=== PATIENT | female | born 1965 | race American Indian/Alaskan Native ===

== ENCOUNTER 2017-08-15 19:13 | Inpatient (IN) | payer BC ==
[2017-08-15 19:57] LABS: Hemoglobin 11.3 gm/dl (10.1-14.3); Mean Corpuscular HGB Conc 33 % (30-34); Mean Corpuscular Volume 74 fl (79-97); Platelet Count 378 K/mm3 (140-440)
[2017-08-15 20:03] LABS: Mean Corpuscular Hemoglobin 25 pg (28-32)
[2017-08-15 20:21] LABS: Calcium 9.9 mg/dL (8.4-10.2)
[2017-08-15 21:04] LABS: Bacteria,Urine 1+ /HPF (Negative); Bilirubin,Urine NEG (Negative); Blood,Urine NEG (Negative); Color,Urine Yellow (Yellow); Urobilinogen,Urine < 2.0 mg/dL (<2.0)
--- NOTE | 2017-08-16 05:38 | Emergency Department Report ---
Blank Doc - Documentation Documentation: 51 year old female with a past medical history hypertension and CHF presents to hospital after syncopal episode at 2 PM. Patient became nauseated, went to stand to go to the bathroom, then passed out. The next day she remembered his her brother helping her up. Patient had some mild pain to the top of her nasal bridge. She complains of a mild headache now because she hasn't had anything to eat. She denies continued nausea, vomiting, chest pain, shortness of breath , abdominal pain, or fever. Patient complains of 2 loose stools and diarrhea for a couple of days. Patient is visiting from [place] and flew to [facility] 3 days ago. Labs reveal significant renal dysfunction (inc creatinine) with elevated BUN and hyperkalemia. Patient does complain of feeling somewhat fatigued but I would expect more depressed mental status for patient with new-onset renal failure (unless very gradual onset). Patient also does not have signs of fluid overload and was able to produce urine in the ED. EKG reviewed does not show signs of ST elevation or significant peaked T waves. I have ordered a repeat CBC, BMP reverify these abnormalities prior to nephrology consultation INR also ordered CT head ordered since patient passed out and has head trauma She has minimum superior nasal bridge tenderness, no septal hematoma and no other facial tenderness on exam. Nurse instructed to put current meds in computer and perform orthostatics pt to be further evaluated and dispo as per adams ROBERTS.
[2017-08-16 06:01] LABS: Basophils # (Auto) 0.1 K/mm3 (0.0-0.1); Basophils % (Auto) 0.6 % (0.0-1.8); Eosinophils # (Auto) 0.1 K/mm3 (0.0-0.4); Eosinophils % (Auto) 0.6 % (0.0-4.3); Hematocrit 36.1 % (30.3-42.9); Lymphocytes # (Auto) 2.1 K/mm3 (1.2-5.4); Lymphocytes % (Auto) 18.8 % (13.4-35.0); Mean Corpuscular HGB Conc 33 % (30-34); Mean Corpuscular Volume 75 fl (79-97); Monocytes # (Auto) 0.8 K/mm3 (0.0-0.8); Monocytes % (Auto) 7.3 % (0.0-7.3); Platelet Count 376 K/mm3 (140-440); Red Blood Count 4.83 M/mm3 (3.65-5.03); Red Cell Distribution Width 13.8 % (13.2-15.2)
[2017-08-16 06:03] LABS: Mean Corpuscular Hemoglobin 25 pg (28-32)
[2017-08-16 06:12] LABS: INR 1.01 (0.87-1.13)
[2017-08-16 06:23] LABS: Calcium 10.5 mg/dL (8.4-10.2)
[2017-08-16 06:24] LABS: Creatine Kinase MB 2.2 ng/mL (0.0-4.0)
[2017-08-16] MEDS ORDERED: PROVENTIL IH ONE (06:37)
[2017-08-16] MEDS ORDERED: KIONEX PO ONE (06:37)
[2017-08-16] MEDS ORDERED: SODIUM BICARBONATE IV ONE (06:37)
[2017-08-16] MEDS ORDERED: HumuLIN R IV ONE (06:39)
[2017-08-16] MEDS ORDERED: D50W (25GM) Syringe IV ONE (06:39)
--- NOTE | 2017-08-16 06:45 | Emergency Department Report ---
HPI - General Chief Complaint: Syncope Time Seen by Provider: 08/16/17 05:23 - HPI HPI: Room 17 The patient is a 51-year-old female presenting with a chief complaint of syncope. The patient states yesterday afternoon at approximately 14:00 she was in her usual state of health sitting down on a couch when she suddenly felt nauseous. The patient states she stood up to go to the bathroom and then lost consciousness. Patient awakened on the floor with family over her. Patient denied preceding chest pain, headache, palpitations or shortness of breath. Patient denies any change in urinary output. Patient did admit to 2 episodes of diarrhea yesterday. Patient currently asymptomatic Location: [See above] Duration: [See above] Quality: Nausea Severity: Moderate Modifying factors: [see above] Context: [see above] Mode of transportation: [not driving] ED Past Medical Hx - Past Medical History Hx Hypertension: Yes Hx Congestive Heart Failure: Yes - Surgical History Past Surgical History?: No - Family History Family history: no significant - Social History Smoking Status: Former Smoker (none 10 months) Substance Use Type: None - Medications Home Medications: Home Medications Medication Instructions Recorded Confirmed Last Taken Type Aspirin EC 81 mg PO DAILY 08/16/17 08/16/17 Unknown History Bumetanide [Bumex 1 mg tab] 2 mg PO BID 08/16/17 08/16/17 Unknown History Carvedilol [Coreg] 3 tab PO BID 08/16/17 08/16/17 Unknown History Colace CAP 100 mg PO AC 08/16/17 08/16/17 Unknown History Isosorbide Dinitrate [Isordil 30 mg PO TID 08/16/17 08/16/17 Unknown History Titradose] Klor-Con 10 20 meq PO DAILY 08/16/17 08/16/17 Unknown History Lisinopril [Zestril TAB] 30 mg PO DAILY 08/16/17 08/16/17 Unknown History Spironolactone 25 mg PO DAILY 08/16/17 08/16/17 Unknown History hydrALAZINE [Apresoline] 75 mg PO Q8HR 08/16/17 08/16/17 Unknown History ED Review of Systems ROS: Stated complaint: PAST OUT,HEART FAILURE Other details as noted in HPI Constitutional: no symptoms reported Eyes: denies: eye pain ENT: denies: throat pain Respiratory: denies: shortness of breath Cardiovascular: denies: chest pain, palpitations Gastrointestinal: nausea, diarrhea. denies: abdominal pain Genitourinary: denies: dysuria Musculoskeletal: denies: back pain Neurological: denies: headache Physical Exam - Physical Exam Vital Signs: Vital Signs 08/15/17 08/16/17 08/16/17 19:22 04:19 05:33 Temperature 98.6 F 98.9 F Pulse Rate 77 70 Pulse Rate [ 64 Lying] Respiratory 18 14 Rate Blood Pressure 109/70 127/70 Blood Pressure 135/60 [Lying] O2 Sat by Pulse 98 98 Oximetry Physical Exam: GENERAL: The patient is well-developed well-nourished female lying on stretcher not appearing to be in acute distress. [] HEENT: Normocephalic. Atraumatic. Extraocular motions are intact. Patient has moist mucous membranes. NECK: Supple. No meningitic signs are noted. Trachea midline CHEST/LUNGS: Clear to auscultation. There is no respiratory distress noted. HEART/CARDIOVASCULAR: Regular. There is no tachycardia. There is no gallop rub or murmur. ABDOMEN: Abdomen is soft, nontender. Patient has normal bowel sounds. There is no abdominal distention. SKIN: There is no rash. There is no edema. There is no diaphoresis. NEURO: The patient is awake, alert, and oriented. The patient is cooperative. The patient has no focal neurologic deficits. The patient has normal speech. Cranial nerves II through XII grossly intact, no drift MUSCULOSKELETAL: There is no evidence of acute injury. NIHSS= 0 LOC a. Alert= 0 Not alert but arousable to minor stimuli=1 Not alert requires repeated or strong stimuli to move= 2 Responds only reflex motor or unresponsive=3 b. asks month and age answers both correctly= 0 answers one correctly= 1 answers neither correctly= 2 Best Gaze normal= 0 abnormal in one or both but forced deviation or total paresis absent= 1 forced deviation or total gaze paresis= 2 Visual no visual loss= 0 partial hemianopia= 1 complete hemianopia= 2 bilateral hemianopia= 3 Facial Palsy normal= 0 minor paralysis= 1 partial paralysis= 2 complete paralysis= 3 Motor Arm no drift= 0 drift before 10 secs but doesnt hit bed= 1 some effort against gravity= 2 no effort against gravity= 3 no movement= 4 Motor leg no drift= 0 drift before 5 secs but doesnt hit bed= 1 drifts to bed before 5 secs= 2 no effort against gravity= 3 no movement= 4 Limb ataxia absent=0 present in one limb= 1 present in two limbs= 2 Sensory normal= 0 mild sensory loss= 1 severe (unaware of being touched)= 2 Best language mild/some loss of fluency= 1 severe= 2 mute= 3 Dysarthria normal= 0 slurs some words= 1 severe/unintelligible= 2 Extinction and Inattention no abnormality= 0 visual, tactile, auditory or personal inattention= 1 profound (doesnt recognize own hand or orients to only one side= 2 ED Course Vital Signs 08/15/17 08/16/17 08/16/17 19:22 04:19 05:33 Temperature 98.6 F 98.9 F Pulse Rate 77 70 Pulse Rate [ 64 Lying] Respiratory 18 14 Rate Blood Pressure 109/70 127/70 Blood Pressure 135/60 [Lying] O2 Sat by Pulse 98 98 Oximetry ED Medical Decision Making - Lab Data Result diagrams: 08/16/17 05:46 08/16/17 05:46 Laboratory Tests 08/15/17 08/15/17 08/15/17 19:35 19:35 20:31 WBC 13.7 H RBC 4.60 Hgb 11.3 Hct 34.0 MCV 74 L MCH 25 L MCHC 33 RDW 14.0 Plt Count 378 Lymph % (Auto) [place] % (Auto) Eos % (Auto) Baso % (Auto) Lymph # [place] # Eos # Baso # Seg Neutrophils % Seg Neutrophils # PT INR Sodium 136 L Potassium 5.7 H Chloride 98.3 Carbon Dioxide 21 L Anion Gap 22 BUN 118 H Creatinine 6.9 H Estimated GFR 6 BUN/Creatinine Ratio 17 Glucose 121 H Calcium 9.9 Total Creatine Kinase CK-MB (CK-2) CK-MB (CK-2) Rel Index Troponin T Urine Color Yellow Urine Turbidity Clear Urine pH 6.0 Ur Specific [place] 1.011 Urine Protein 30 mg/dl Urine Glucose (UA) Neg Urine Ketones Neg Urine Blood Neg Urine Nitrite Neg Urine Bilirubin Neg Urine Urobilinogen < 2.0 Ur Leukocyte Esterase Lg Urine WBC (Auto) 16.0 H Urine RBC (Auto) 5.0 U Epithel Cells (Auto) 10.0 Urine Bacteria (Auto) 1+ 08/16/17 08/16/17 08/16/17 05:46 05:46 05:46 WBC 11.1 H RBC 4.83 Hgb 12.0 Hct 36.1 MCV 75 L MCH 25 L MCHC 33 RDW 13.8 Plt Count 376 Lymph % (Auto) 18.8 [place] % (Auto) 7.3 Eos % (Auto) 0.6 Baso % (Auto) 0.6 Lymph # 2.1 [place] # 0.8 Eos # 0.1 Baso # 0.1 Seg Neutrophils % 72.7 H Seg Neutrophils # 8.1 H PT 13.8 INR 1.01 Sodium 141 Potassium 5.9 H Chloride 98.3 Carbon Dioxide 25 Anion Gap 24 BUN 115 H Creatinine 6.0 H Estimated GFR 9 BUN/Creatinine Ratio 19 Glucose 102 H Calcium 10.5 H Total Creatine Kinase CK-MB (CK-2) CK-MB (CK-2) Rel Index Troponin T Urine Color Urine Turbidity Urine pH Ur Specific [place] Urine Protein Urine Glucose (UA) Urine Ketones Urine Blood Urine Nitrite Urine Bilirubin Urine Urobilinogen Ur Leukocyte Esterase Urine WBC (Auto) Urine RBC (Auto) U Epithel Cells (Auto) Urine Bacteria (Auto) 08/16/17 05:46 WBC RBC Hgb Hct MCV MCH MCHC RDW Plt Count Lymph % (Auto) [place] % (Auto) Eos % (Auto) Baso % (Auto) Lymph # [place] # Eos # Baso # Seg Neutrophils % Seg Neutrophils # PT INR Sodium Potassium Chloride Carbon Dioxide Anion Gap BUN Creatinine Estimated GFR BUN/Creatinine Ratio Glucose Calcium Total Creatine Kinase 100 CK-MB (CK-2) 2.2 CK-MB (CK-2) Rel Index 2.2 Troponin T < 0.010 Urine Color Urine Turbidity Urine pH Ur Specific [place] Urine Protein Urine Glucose (UA) Urine Ketones Urine Blood Urine Nitrite Urine Bilirubin Urine Urobilinogen Ur Leukocyte Esterase Urine WBC (Auto) Urine RBC (Auto) U Epithel Cells (Auto) Urine Bacteria (Auto) - EKG Data -: EKG Interpreted by Me EKG shows normal: sinus rhythm Rate: normal - EKG Data When compared to previous EKG there are: previous EKG unavailable Interpretation: nonspecific ST-T wave brock (T-wave inversions in leads 3 and aVF. Biphasic T-wave in V6) - Radiology Data Radiology results: report reviewed (CT head), image reviewed (CT head) [facility] [address] [place] [address] Cat Scan Report Signed Patient: RENATE FORRESTER MR#: [id number] : 1965 Acct:[id number] Age/Sex: 51 / F ADM Date: 08/15/17 Loc: ED Attending Dr: Ordering Physician: SOMMER HERNANDEZ MD Date of Service: 08/16/17 Procedure(s): CT head/brain wo con Accession Number(s): [id number] cc: SOMMER HERNANDEZ MD FINAL REPORT EXAM: CT HEAD/BRAIN WO CON HISTORY: syncope TECHNIQUE: Routine axial imaging was obtained of the brain without IV contrast. There are no previous studies available for comparison. FINDINGS: There is diminished attenuation of the periventricular white matter compatible with chronic microvascular disease changes. There is a remote lacunar infarct in the left temporal lobe just medial to the sub insular cortex. There is no evidence of acute stroke or hemorrhage. The ventricular system is appropriate in size and is symmetric. The visualized sinuses are clear. The mastoid air cells are well pneumatized. The calvarium appears intact. IMPRESSION: Diminished attenuation of the periventricular white matter compatible with chronic microvascular changes. No evidence of acute stroke or hemorrhage otherwise. Remote lacunar infarct in the left temporal lobe as described. Transcribed By: RB Dictated By: GALE PAIGE MD Electronically Authenticated By: GALE PAIGE MD Signed Date/Time: 08/16/17702 DD/ 2 - Differential Diagnosis syncope, ICH, dehydration, renal failure Critical care attestation.: If time is entered above; I have spent that time in minutes in the direct care of this critically ill patient, excluding procedure time. ED Disposition Clinical Impression: Syncope, Acute renal failure, Hyperkalemia Disposition: -09 OP ADMIT IP TO THIS HOSP Is pt being admited?: Yes Does the pt Need Aspirin: No Condition: Fair Instructions: Syncope (ED) Referrals: PRIMARY CARE, [Primary Care Provider] - 3-5 Days Time of Disposition: 07:22 (hospitalist notified (Dr Zendejas))
--- NOTE | 2017-08-16 07:07 | Cat Scan Report ---
FINAL REPORT EXAM: CT HEAD/BRAIN WO CON HISTORY: syncope TECHNIQUE: Routine axial imaging was obtained of the brain without IV contrast. There are no previous studies available for comparison. FINDINGS: There is diminished attenuation of the periventricular white matter compatible with chronic microvascular disease changes. There is a remote lacunar infarct in the left temporal lobe just medial to the sub insular cortex. There is no evidence of acute stroke or hemorrhage. The ventricular system is appropriate in size and is symmetric. The visualized sinuses are clear. The mastoid air cells are well pneumatized. The calvarium appears intact. IMPRESSION: Diminished attenuation of the periventricular white matter compatible with chronic microvascular changes. No evidence of acute stroke or hemorrhage otherwise. Remote lacunar infarct in the left temporal lobe as described.
[2017-08-16] MEDS ORDERED: MORPHINE IV PRN (08:25)
[2017-08-16] MEDS ORDERED: ZOFRAN IV PRN (08:25)
[2017-08-16] MEDS ORDERED: SODIUM CHLORIDE FLUSH SYRINGE 10 ML IV PRN (08:25)
[2017-08-16] MEDS ORDERED: TYLENOL PO PRN (08:25)
--- NOTE | 2017-08-16 08:25 | History and Physical Report ---
History of Present Illness Date of examination: 08/16/17 Date of admission: 08/16/17 Chief complaint: passed out History of present illness: Patient is 51 yo with history of hypertension, CHF. She is from [place] just visiting in the [place] area. She presents with an episode of syncope. Patient states she was at home sitting in a chair she gets up to go to bathroom and passed out. She was found on the floor by her brother and brought to emergency department. She denied any chest pain or shortness of breath. After she became conscious she was bleeding from the nose. Patient was evaluated in emergency department, CT head was unremarkable. Labs showed acute kidney injury with creatinine of 6.9, Hyperkalemia with potassium of 5.7. She denies having a history of renal failure. Patient is on Bumex, aldactone, lisinopril, potassium supplements. She states she does labs every month and the last lab was earlier this month. She cannot give the exact results, but states she was never told there was any problem with kidneys.. In ED, she has been given Insulin, Albuterol, kayexalate, and will be admitted for further management. Past History Past Medical History: heart failure, hypertension Past Surgical History: No surgical history Social history: lives with family, full code, other (Quit smoking 10mths ago). denies: smoking, alcohol abuse Family history: hypertension Medications and Allergies Allergies Allergy/AdvReac Type Severity Reaction Status Date / Time No Known Allergies Allergy Verified 08/16/17 06:39 Home Medications Medication Instructions Recorded Confirmed Last Taken Type Aspirin EC 81 mg PO DAILY 08/16/17 08/16/17 Unknown History Bumetanide [Bumex 1 mg tab] 2 mg PO BID 08/16/17 08/16/17 Unknown History Carvedilol [Coreg] 3 tab PO BID 08/16/17 08/16/17 Unknown History Colace CAP 100 mg PO AC 08/16/17 08/16/17 Unknown History Isosorbide Dinitrate [Isordil 30 mg PO TID 08/16/17 08/16/17 Unknown History Titradose] Klor-Con 10 20 meq PO DAILY 08/16/17 08/16/17 Unknown History Lisinopril [Zestril TAB] 30 mg PO DAILY 08/16/17 08/16/17 Unknown History Spironolactone 25 mg PO DAILY 08/16/17 08/16/17 Unknown History hydrALAZINE [Apresoline] 75 mg PO Q8HR 08/16/17 08/16/17 Unknown History Review of Systems All systems: negative (No headache, no chest pain, no fever. All other systems reviewed and are negative) Exam - Physical Exam Narrative exam: Gen : Not in acute distress, Obese,lying in bed HEENT:Normocephalic, atraumatic Neck: supple, No JVD Lungs: Clear to auscultation bilaterally, no crackles. no rhonchi, Heart :S1 and S2 reg, no murmurs, rubs or gallop Abd:soft, non tender, non distended, normal bowel sounds Ext: No edema, no clubbing, no cyanosis Neuro: Awake,alert,oriented x 3, no focal signs Psych: Normal mood - Constitutional Vitals: Temp Pulse Resp BP Pulse Ox 98.9 F 84 18 143/74 97 08/16/17 04:19 08/16/17 07:19 08/16/17 07:19 08/16/17 06:30 08/16/17 06:30 Results - Labs CBC & Chem 7: 08/17/17 05:34 08/17/17 05:34 Labs: Abnormal lab results 08/15/17 08/15/17 08/15/17 Range/Units 19:35 19:35 20:31 WBC 13.7 H (4.5-11.0) K/mm3 MCV 74 L (79-97) fl MCH 25 L (28-32) pg Seg Neutrophils % (40.0-70.0) % Seg Neutrophils # (1.8-7.7) K/mm3 Sodium 136 L (137-145) mmol/L Potassium 5.7 H (3.6-5.0) mmol/L Carbon Dioxide 21 L (22-30) mmol/L BUN 118 H (7-17) mg/dL Creatinine 6.9 H (0.7-1.2) mg/dL Glucose 121 H (65-100) mg/dL Calcium (8.4-10.2) mg/dL Urine WBC (Auto) 16.0 H (0.0-6.0) /HPF 08/16/17 08/16/17 Range/Units 05:46 05:46 WBC 11.1 H (4.5-11.0) K/mm3 MCV 75 L (79-97) fl MCH 25 L (28-32) pg Seg Neutrophils % 72.7 H (40.0-70.0) % Seg Neutrophils # 8.1 H (1.8-7.7) K/mm3 Sodium (137-145) mmol/L Potassium 5.9 H (3.6-5.0) mmol/L Carbon Dioxide (22-30) mmol/L BUN 115 H (7-17) mg/dL Creatinine 6.0 H (0.7-1.2) mg/dL Glucose 102 H (65-100) mg/dL Calcium 10.5 H (8.4-10.2) mg/dL Urine WBC (Auto) (0.0-6.0) /HPF Assessment and Plan Syncope likely due to orthostasis. 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 Potassium 5.6 on presentation. She was on Potassium supplements, Aldactone,Lisinopril. Will hold all for now. Kayexalate given recheck later today Hypertension. Obtain orthostatic vitals. May resume Coreg, Nitrates when BP stable. Chronic CHF, details unclear. She was on Bumex, Aldactone, Lisinopril.Coreg, Nitrates Obtain records from technical solution architect at [place] DVT prophylaxis. will start heparin subcut. Full code status
[2017-08-16] MEDS ORDERED: CALCIUM GLUCONATE 1,000 MG in NACL 0.9% 100 ML IV ONE (09:10)
--- NOTE | 2017-08-16 09:13 | Consultation ---
History of Present Illness - Reason for Consult Consult date: 08/16/17 acute renal failure Requesting physician: MELVIN MASON - History of Present Illness The patient is a 51-year-old female presenting with a chief complaint of syncope. The patient states yesterday afternoon at approximately 14:00 she was in her usual state of health sitting down on a couch when she suddenly felt nauseous. The patient states she stood up to go to the bathroom and then lost consciousness. Patient awakened on the floor with family over her. Patient denied preceding chest pain, headache, palpitations or shortness of breath. Patient denies any change in urinary output. Patient did admit to 2 episodes of diarrhea yesterday. Patient currently asymptomatic - Past Medical History Hx Hypertension: Yes Hx Congestive Heart Failure: Yes - Surgical History Past Surgical History?: No - Family History Family history: no significant - Social History Smoking Status: Former Smoker (none 10 months) Substance Use Type: None ROS: Stated complaint: PAST OUT,HEART FAILURE Other details as noted in HPI Constitutional: no symptoms reported Eyes: denies: eye pain ENT: denies: throat pain Respiratory: denies: shortness of breath Cardiovascular: denies: chest pain, palpitations Gastrointestinal: nausea, diarrhea. denies: abdominal pain Genitourinary: denies: dysuria Musculoskeletal: denies: back pain Neurological: denies: headache Past History Past Medical History: heart failure, hypertension Past Surgical History: No surgical history Social history: lives with family, full code, other (Quit smoking 10mths ago). denies: smoking, alcohol abuse Family history: hypertension Medications and Allergies Allergies Allergy/AdvReac Type Severity Reaction Status Date / Time No Known Allergies Allergy Verified 08/16/17 06:39 Home Medications Medication Instructions Recorded Confirmed Last Taken Type Aspirin EC 81 mg PO DAILY 08/16/17 08/16/17 Unknown History Bumetanide [Bumex 1 mg tab] 2 mg PO BID 08/16/17 08/16/17 Unknown History Carvedilol [Coreg] 3 tab PO BID 08/16/17 08/16/17 Unknown History Colace CAP 100 mg PO AC 08/16/17 08/16/17 Unknown History Isosorbide Dinitrate [Isordil 30 mg PO TID 08/16/17 08/16/17 Unknown History Titradose] Klor-Con 10 20 meq PO DAILY 08/16/17 08/16/17 Unknown History Lisinopril [Zestril TAB] 30 mg PO DAILY 08/16/17 08/16/17 Unknown History Spironolactone 25 mg PO DAILY 08/16/17 08/16/17 Unknown History hydrALAZINE [Apresoline] 75 mg PO Q8HR 08/16/17 08/16/17 Unknown History Active Meds: Active Medications Acetaminophen (Tylenol) 650 mg PO Q4H PRN PRN Reason: Pain MILD(1-3)/Fever >100.5/ANDUJAR Dextrose/Sodium Chloride (D5ns) 1,000 mls @ 75 mls/hr IV DIRECT LAMBERTO Morphine Sulfate (Morphine) 2 mg IV Q4H PRN PRN Reason: Pain, Moderate (4-6) Ondansetron HCl (Zofran) 4 mg IV Q8H PRN PRN Reason: Nausea And Vomiting Sodium Chloride (Sodium Chloride Flush Syringe 10 Ml) 10 ml IV BID LAMBERTO Sodium Chloride (Sodium Chloride Flush Syringe 10 Ml) 10 ml IV PRN PRN PRN Reason: LINE FLUSH Exam - Vital Signs Vital signs: Vital Signs Temp Pulse Resp BP Pulse Ox 98.6 F 77 18 109/70 98 08/15/17 19:22 08/15/17 19:22 08/15/17 19:22 08/15/17 19:22 08/15/17 19:22 - Physical Exam Narrative exam: GENERAL: The patient is well-developed well-nourished female lying on stretcher not appearing to be in acute distress. [] HEENT: Normocephalic. Atraumatic. Extraocular motions are intact. Patient has moist mucous membranes. NECK: Supple. No meningitic signs are noted. Trachea midline CHEST/LUNGS: Clear to auscultation. There is no respiratory distress noted. HEART/CARDIOVASCULAR: Regular. There is no tachycardia. There is no gallop rub or murmur. ABDOMEN: Abdomen is soft, nontender. Patient has normal bowel sounds. There is no abdominal distention. SKIN: There is no rash. There is no edema. There is no diaphoresis. NEURO: The patient is awake, alert, and oriented. The patient is cooperative. The patient has no focal neurologic deficits. The patient has normal speech. Cranial nerves II through XII grossly intact, no drift MUSCULOSKELETAL: There is no evidence of acute injury. 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
[2017-08-16] MEDS ORDERED: ALBURX 25% (ALBUMIN) IV PRN (10:03)
[2017-08-16] MEDS ORDERED: NACL 0.9% 100 ML IV PRN (10:03)
[2017-08-16] MEDS: SODIUM CHLORIDE FLUSH SYRINGE 10 ML IV SCH (10:27)
--- NOTE | 2017-08-16 11:22 | XRay Report ---
ROUTINE CHEST, TWO VIEWS: HISTORY: CHF. The trachea, heart, mediastinal contour, lung pena and bony thorax are unremarkable. IMPRESSION: Unremarkable chest x-ray.
[2017-08-16 14:53] LABS: Calcium 10.5 mg/dL (8.4-10.2)
[2017-08-16] MEDS ORDERED: HumuLIN R IV STA (15:56)
--- NOTE | 2017-08-16 15:59 | Ultrasound Report ---
ULTRASOUND RENAL BILATERAL HISTORY: Acute renal failure. TECHNIQUE: transabdominal ultrasound with color Doppler interrogation. COMPARISON: none. FINDINGS: The right kidney measures 9.1cm. Right renal cortex: 1.3cm. The left kidney measures 9.4cm. Left renal cortex: 1.1cm. The kidneys are normal size, contour and position. There is increased renal parenchymal echotexture bilaterally. Corticomedullary differentiation is preserved. No evidence for cystic disease, mass, nephrolithiasis, hydronephrosis or perinephric fluid. The views of the bladder and the region of the ureters appear normal. IMPRESSION: Slightly echogenic kidneys consistent with nonspecific renal parenchymal disease. No evidence for focal renal lesion or hydronephrosis.
[2017-08-16] MEDS ORDERED: D50W (25GM) Syringe IV SCH (16:00)
[2017-08-16] MEDS: KIONEX PO SCH (17:32)
[2017-08-16 18:09] LABS: Bacteria,Urine 1+ /HPF (Negative); Bilirubin,Urine NEG (Negative); Blood,Urine NEG (Negative); Color,Urine Yellow (Yellow); Mucus,Urine FEW /HPF; Urobilinogen,Urine < 2.0 mg/dL (<2.0)
--- NOTE | 2017-08-16 18:18 | Event Note ---
Date: 08/16/[address] Tan, [employer] Member of patient at [place]. She states patient had CKD with baseline Cr 1.7-1.9. She also states only new med is Aldactone 25mg po daily started on 07/22/17. Also last Cr was done 07/07/17 revealed Cr 1.94. In addition patient had right heart cath on 08/02/17 but states contrast was not used. Her contact info:Dr. Tan, board operator [phone].
--- NOTE | 2017-08-16 18:32 | Consultation ---
History of Present Illness - Reason for Consult Consult date: 08/16/17 Temporary HD access placement Requesting physician: CORIN LINDQUIST - History of Present Illness This pt is a 51 yo AAF that was admitted via the ER 08/16/17 after a syncopal episode. She was noted to be in acute on CKD. A vascular surgery consult was requested to evaluate for Perma-cath placement. Past History Past Medical History: heart failure, hypertension Past Surgical History: Other (heart cath (without dye)) Social history: lives with family, full code, other (Quit smoking 10mths ago, visiting family in [place] from [place]). denies: smoking, alcohol abuse Family history: hypertension Medications and Allergies Allergies Allergy/AdvReac Type Severity Reaction Status Date / Time No Known Allergies Allergy Verified 08/16/17 06:39 Home Medications Medication Instructions Recorded Confirmed Last Taken Type Aspirin EC 81 mg PO DAILY 08/16/17 08/16/17 Unknown History Bumetanide [Bumex 1 mg tab] 2 mg PO BID 08/16/17 08/16/17 Unknown History Carvedilol [Coreg] 3 tab PO BID 08/16/17 08/16/17 Unknown History Colace CAP 100 mg PO AC 08/16/17 08/16/17 Unknown History Isosorbide Dinitrate [Isordil 30 mg PO TID 08/16/17 08/16/17 Unknown History Titradose] Klor-Con 10 20 meq PO DAILY 08/16/17 08/16/17 Unknown History Lisinopril [Zestril TAB] 30 mg PO DAILY 08/16/17 08/16/17 Unknown History Spironolactone 25 mg PO DAILY 08/16/17 08/16/17 Unknown History hydrALAZINE [Apresoline] 75 mg PO Q8HR 08/16/17 08/16/17 Unknown History Active Meds: Active Medications Acetaminophen (Tylenol) 650 mg PO Q4H PRN PRN Reason: Pain MILD(1-3)/Fever >100.5/ANDUJAR Albumin Human (Alburx 25% (Albumin)) 25 gm IV MARV PRN PRN Reason: Hypotension Dextrose/Sodium Chloride (D5ns) 1,000 mls @ 75 mls/hr IV DIRECT LAMBERTO Sodium Chloride (Nacl 0.9%) 100 mls @ 999 mls/hr IV MARV PRN PRN Reason: Hypotension Cefazolin Sodium (Ancef/Sterile Water 2 Gm/20 Ml) 2 gm in 20 mls @ 80 mls/hr IV PREOP NR; Protocol Stop: 08/17/17 08:14 Morphine Sulfate (Morphine) 2 mg IV Q4H PRN PRN Reason: Pain, Moderate (4-6) Ondansetron HCl (Zofran) 4 mg IV Q8H PRN PRN Reason: Nausea And Vomiting Sodium Chloride (Sodium Chloride Flush Syringe 10 Ml) 10 ml IV BID [facility] Last Admin: 08/16/17 10:27 Dose: 10 ml Sodium Chloride (Sodium Chloride Flush Syringe 10 Ml) 10 ml IV PRN PRN PRN Reason: LINE FLUSH Sodium Polystyrene Sulfonate (Kionex) 30 gm PO Q6HR [facility] Stop: 08/17/17 00:01 Last Admin: 08/16/17 17:32 Dose: 30 gm Review of Systems All systems: negative Exam - Constitutional Vitals: Temp Pulse Resp BP Pulse Ox 98.2 F 72 21 143/74 95 08/16/17 16:00 08/16/17 09:19 08/16/17 08:50 08/16/17 08:50 08/16/17 08:50 General appearance: Present: no acute distress - EENT Eyes: Present: EOM intact ENT: hearing intact - Neck Neck: Present: supple - Respiratory Respiratory effort: normal - Extremities Extremities: normal temperature - Psychiatric Psychiatric: appropriate mood/affect, intact judgment & insight, cooperative - Neurologic Neurologic: no focal deficits Results - Labs CBC & Chem 7: 08/16/17 05:46 08/16/17 14:21 Labs: Abnormal lab results 08/15/17 08/15/17 08/15/17 Range/Units 19:35 19:35 20:31 WBC 13.7 H (4.5-11.0) K/mm3 MCV 74 L (79-97) fl MCH 25 L (28-32) pg Seg Neutrophils % (40.0-70.0) % Seg Neutrophils # (1.8-7.7) K/mm3 Sodium 136 L (137-145) mmol/L Potassium 5.7 H (3.6-5.0) mmol/L Carbon Dioxide 21 L (22-30) mmol/L BUN 118 H (7-17) mg/dL Creatinine 6.9 H (0.7-1.2) mg/dL Glucose 121 H (65-100) mg/dL Calcium (8.4-10.2) mg/dL PTH Intact (15-65) pg/mL Urine WBC (Auto) 16.0 H (0.0-6.0) /HPF 08/16/17 08/16/17 08/16/17 Range/Units 05:46 05:46 10:01 WBC 11.1 H (4.5-11.0) K/mm3 MCV 75 L (79-97) fl MCH 25 L (28-32) pg Seg Neutrophils % 72.7 H (40.0-70.0) % Seg Neutrophils # 8.1 H (1.8-7.7) K/mm3 Sodium (137-145) mmol/L Potassium 5.9 H (3.6-5.0) mmol/L Carbon Dioxide (22-30) mmol/L BUN 115 H (7-17) mg/dL Creatinine 6.0 H (0.7-1.2) mg/dL Glucose 102 H (65-100) mg/dL Calcium 10.5 H (8.4-10.2) mg/dL PTH Intact 232.6 H (15-65) pg/mL Urine WBC (Auto) (0.0-6.0) /HPF 08/16/17 08/16/17 Range/Units 14:21 Unknown WBC (4.5-11.0) K/mm3 MCV (79-97) fl MCH (28-32) pg Seg Neutrophils % (40.0-70.0) % Seg Neutrophils # (1.8-7.7) K/mm3 Sodium 146 H (137-145) mmol/L Potassium 6.0 H (3.6-5.0) mmol/L Carbon Dioxide (22-30) mmol/L BUN 110 H (7-17) mg/dL Creatinine 5.1 H (0.7-1.2) mg/dL Glucose (65-100) mg/dL Calcium 10.5 H (8.4-10.2) mg/dL PTH Intact (15-65) pg/mL Urine WBC (Auto) 23.0 H (0.0-6.0) /HPF Assessment and Plan Insertion of perma-cath. The risk, benefits, and alternatives were discussed in detail (including but not limited to: infection, blood loss, dvt, pneumo-thorax , etc). Pt states understanding and agrees to proceed. - Patient Problems (1) Acute kidney injury superimposed on CKD Current Visit: Yes Status: Acute
[2017-08-17] MEDS: KIONEX PO SCH (00:43)
[2017-08-17] MEDS: SODIUM CHLORIDE FLUSH SYRINGE 10 ML IV SCH ×3 (00:44→22:00)
[2017-08-17 06:10] LABS: Basophils % (Auto) 0.5 % (0.0-1.8); Eosinophils # (Auto) 0.1 K/mm3 (0.0-0.4); Eosinophils % (Auto) 0.9 % (0.0-4.3); Hematocrit 31.1 % (30.3-42.9); Hemoglobin 10.3 gm/dl (10.1-14.3); Mean Corpuscular HGB Conc 33 % (30-34); Mean Corpuscular Volume 75 fl (79-97); Monocytes # (Auto) 1.1 K/mm3 (0.0-0.8); Platelet Count 327 K/mm3 (140-440); Red Blood Count 4.17 M/mm3 (3.65-5.03); Red Cell Distribution Width 13.9 % (13.2-15.2)
[2017-08-17 06:11] LABS: Mean Corpuscular Hemoglobin 25 pg (28-32)
[2017-08-17 06:32] LABS: Calcium 9.2 mg/dL (8.4-10.2)
[2017-08-17] MEDS ORDERED: ANCEF/STERILE WATER 2 GM/20 ML 2 GM/20 ML SYRINGE IV NR (08:00)
[2017-08-17] MEDS ORDERED: HEPARIN IR ONE (09:48)
[2017-08-17] MEDS ORDERED: NACL 0.9% IR ONE (09:48)
[2017-08-17] MEDS ORDERED: SUBLIMAZE IV ONE ×2 (09:50→10:12)
[2017-08-17] MEDS ORDERED: VERSED IV ONE ×2 (09:50→10:12)
[2017-08-17] MEDS ORDERED: XYLOCAINE 2% INFILTRATI ONE ×2 (09:50→10:13)
[2017-08-17] MEDS ORDERED: HEPARIN 10,000 UNITS/10 ML IV ONE ×4 (09:51→10:23)
[2017-08-17] MEDS ORDERED: LEVAQUIN 250MG/50ML 250 MG/50 ML BAG IV SCH (10:00)
--- NOTE | 2017-08-17 10:19 | Progress Note ---
Assessment and Plan Impression: * FLORY--?VI * hyperkalemia * Azotemia--uremia * Cardiomyopathy * HTN * UTI Plan: * appears uremic by exam and lab data, will need * consulted vasc for dialysis access placement * intiate hd for uremia and elec control * iv abx for UTI * recent heart cath in [place], may have VI * follow up daily lytes * follow up renal us, vasculitis work up * ua and urine lytes * hold bienvenido, aldactone for now * treat k medically * strict i/os * avoid nephrotoxins * dose meds to crcl 10 Subjective Date of service: 08/17/17 Principal diagnosis: flory Interval history: resting well in bed today Objective - Exam Narrative Exam: GENERAL: The patient is well-developed well-nourished female lying on stretcher not appearing to be in acute distress. [] HEENT: Normocephalic. Atraumatic. Extraocular motions are intact. Patient has moist mucous membranes. NECK: Supple. No meningitic signs are noted. Trachea midline CHEST/LUNGS: Clear to auscultation. There is no respiratory distress noted. HEART/CARDIOVASCULAR: Regular. There is no tachycardia. There is no gallop rub or murmur. ABDOMEN: Abdomen is soft, nontender. Patient has normal bowel sounds. There is no abdominal distention. SKIN: There is no rash. There is no edema. There is no diaphoresis. NEURO: The patient is awake, alert, and oriented. The patient is cooperative. The patient has no focal neurologic deficits. The patient has normal speech. Cranial nerves II through XII grossly intact, no drift MUSCULOSKELETAL: There is no evidence of acute injury. - Vital Signs Vital signs: Vital Signs - 12hr 08/17/17 08/17/17 08/17/17 00:05 01:00 01:02 Temperature 97.9 F Pulse Rate 78 86 Respiratory 20 20 Rate Blood Pressure Blood Pressure 131/75 [Right] O2 Sat by Pulse 99 Oximetry 08/17/17 08/17/17 04:57 07:10 Temperature 98.6 F 98.6 F Pulse Rate 80 77 Respiratory 18 Rate Blood Pressure 111/54 114/55 Blood Pressure [Right] O2 Sat by Pulse 97 97 Oximetry - Lab 08/17/17 05:34 08/17/17 05:34 Most recent lab results Calcium 9.2 mg/dL (8.4-10.2) 08/17/17 05:34
--- NOTE | 2017-08-17 10:38 | Operative Report ---
Operative Report Operative Report: Exam: Ultrasound and fluoroscopic guided placement of tunneled hemodialysis catheter Clinical indication: Patient with a history of end-stage renal disease requiring dialysis access Date: 08/17/2017 Procedure: Following an explanation of the risks, benefits and alternatives; written informed consent was obtained. The patient was brought to the injury graphic suite and placed in supine position on the examination table. Initial ultrasound evaluation of the neck demonstrated a patent right internal jugular vein. The patient's right neck and chest wall were prepped and draped in the usual sterile fashion. 1% lidocaine was used for anesthesia. Under ultrasound guidance, the right internal jugular vein was cannulated with a 7 cm 18-gauge needle. A 0.035 guidewire was advanced into the right hepatic vein to document intravenous positioning. The needle was removed. An appropriate catheter exit site was chosen along the lateral right chest wall. 1% lidocaine was used for anesthesia at the catheter exit site and along the tunnel tract. A Bard 23 cm glidepath tunneled hemodialysis catheter was then tunneled antegrade from the catheter exit site to the venotomy site. Following serial dilation over the guidewire under fluoroscopy, a 16 [place] peel -away sheath was placed over the guidewire under fluoroscopy and advance centrally. The guidewire and trocar were removed and the catheter inserted through the peel-away sheath and position the tip in the proximal right atrium. The peel-away sheath was removed. Both ports flushed and aspirated easily and was then locked with appropriate volumes of heparin. The venotomy was closed using 4-0 Vicryl suture. 2-0 Ethilon suture was used to secure the catheter at its exit site. Sterile dressings were then applied. The patient tolerated the procedure well. There were no immediate post procedure complications. Conscious sedation was performed under the guidance of radiologic nursing. Continuous cardiopulmonary monitoring was utilized. Impression: Ultrasound and fluoroscopic guided placement of 23 cm glidepath tunneled hemodialysis catheter via the right internal jugular vein
--- NOTE | 2017-08-17 11:56 | Progress Note ---
Assessment and Plan Assessment and plan: Acute on chronic renal failure. Patient previously had baseline creatinine 1.7- 1.9. Patient with significant azotemia/uremia. 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 Continue to follow-up BMP to monitor closely. Follow-up renal ultrasound and vasculitis workup. Continue to monitor urinalysis and urine electrolytes. Hold BIJU inhibitor and Aldactone per nephrology. Strict I and O's. Avoid nephrotoxins. Hyperkalemia. Etiology secondary to #1. Resolved. UTI. Follow-up antibiotics and cultures. Hypertension. Continue antihypertensive medications. CHF/cardiomyopathy. Obtain old records from extension service specialist in [place]. Syncope. Etiology likely secondary to orthostasis. Resolved. History Interval history: Patient underwent right IJ hemodialysis catheter placement. No other issues. Hospitalist Physical - Constitutional Vitals: Temp Pulse Resp BP Pulse Ox 98.6 F 74 18 114/55 97 08/17/17 07:10 08/17/17 09:00 08/17/17 07:10 08/17/17 07:10 08/17/17 07:10 General appearance: Present: no acute distress - EENT Eyes: Present: PERRL, EOM intact ENT: hearing intact, clear oral mucosa, dentition normal - Neck Neck: Present: supple, normal ROM - Respiratory Respiratory effort: normal Respiratory: bilateral: CTA - Cardiovascular Rhythm: regular Heart Sounds: Present: S1 & S2. Absent: gallop, rub - Extremities Extremities: no ischemia, No edema, Full ROM - Abdominal General gastrointestinal: soft, non-tender, non-distended, normal bowel sounds - Integumentary Integumentary: Present: clear, warm, dry - Neurologic Neurologic: CNII-XII intact, moves all extremities Results - Labs CBC & Chem 7: 08/17/17 05:34 08/17/17 05:34 Labs: Laboratory Last Values WBC 9.9 K/mm3 (4.5-11.0) 08/17/17 05:34 RBC 4.17 M/mm3 (3.65-5.03) 08/17/17 05:34 Hgb 10.3 gm/dl (10.1-14.3) 08/17/17 05:34 Hct 31.1 % (30.3-42.9) 08/17/17 05:34 MCV 75 fl (79-97) L 08/17/17 05:34 MCH 25 pg (28-32) L 08/17/17 05:34 MCHC 33 % (30-34) 08/17/17 05:34 RDW 13.9 % (13.2-15.2) 08/17/17 05:34 Plt Count 327 K/mm3 (140-440) 08/17/17 05:34 Lymph % (Auto) 20.0 % (13.4-35.0) 08/17/17 05:34 [place] % (Auto) 11.0 % (0.0-7.3) H 08/17/17 05:34 Eos % (Auto) 0.9 % (0.0-4.3) 08/17/17 05:34 Baso % (Auto) 0.5 % (0.0-1.8) 08/17/17 05:34 Lymph # 2.0 K/mm3 (1.2-5.4) 08/17/17 05:34 [place] # 1.1 K/mm3 (0.0-0.8) H 08/17/17 05:34 Eos # 0.1 K/mm3 (0.0-0.4) 08/17/17 05:34 Baso # 0.0 K/mm3 (0.0-0.1) 08/17/17 05:34 Seg Neutrophils % 67.6 % (40.0-70.0) 08/17/17 05:34 Seg Neutrophils # 6.7 K/mm3 (1.8-7.7) 08/17/17 05:34 PT 13.8 Sec. (12.2-14.9) 08/16/17 05:46 INR 1.01 (0.87-1.13) 08/16/17 05:46 Sodium 144 mmol/L (137-145) 08/17/17 05:34 Potassium 4.3 mmol/L (3.6-5.0) D 08/17/17 05:34 Chloride 101.8 mmol/L (98-107) 08/17/17 05:34 Carbon Dioxide 28 mmol/L (22-30) 08/17/17 05:34 Anion Gap 19 mmol/L 08/17/17 05:34 BUN 91 mg/dL (7-17) H 08/17/17 05:34 Creatinine 4.1 mg/dL (0.7-1.2) H 08/17/17 05:34 Estimated GFR 14 ml/min 08/17/17 05:34 BUN/Creatinine Ratio 22 % 08/17/17 05:34 Glucose 106 mg/dL (65-100) H 08/17/17 05:34 Calcium 9.2 mg/dL (8.4-10.2) 08/17/17 05:34 Total Creatine Kinase 100 units/L (30-135) 08/16/17 05:46 CK-MB (CK-2) 2.2 ng/mL (0.0-4.0) 08/16/17 05:46 CK-MB (CK-2) Rel Index 2.2 (0-4) 08/16/17 05:46 Troponin T < 0.010 ng/mL (0.00-0.029) 08/16/17 05:46 PTH Intact 232.6 pg/mL (15-65) H 08/16/17 10:01 Urine Color Yellow (Yellow) 08/16/17 Unknown Urine Turbidity Clear (Clear) 08/16/17 Unknown Urine pH 6.0 (5.0-7.0) 08/16/17 Unknown Ur Specific [place] 1.013 (1.003-1.030) 08/16/17 Unknown Urine Protein 30 mg/dl mg/dL (Negative) 08/16/17 Unknown Urine Glucose (UA) Neg mg/dL (Negative) 08/16/17 Unknown Urine Ketones Neg mg/dL (Negative) 08/16/17 Unknown Urine Blood Neg (Negative) 08/16/17 Unknown Urine Nitrite Neg (Negative) 08/16/17 Unknown Urine Bilirubin Neg (Negative) 08/16/17 Unknown Urine Urobilinogen < 2.0 mg/dL (<2.0) 08/16/17 Unknown Ur Leukocyte Esterase Lg (Negative) 08/16/17 Unknown Urine WBC (Auto) 23.0 /HPF (0.0-6.0) H 08/16/17 Unknown Urine RBC (Auto) 3.0 /HPF (0.0-6.0) 08/16/17 Unknown U Epithel Cells (Auto) 8.0 /HPF (0-13.0) 08/16/17 Unknown Urine Bacteria (Auto) 1+ /HPF (Negative) 08/16/17 Unknown Urine Mucus Few /HPF 08/16/17 Unknown Urine Eosinophils None seen (None Seen) 08/16/17 Unknown
[2017-08-17] MEDS ORDERED: NACL 0.9 (PRIMING MACHINE ONLY DIALYSIS) MC ONE (12:12)
[2017-08-17] MEDS ORDERED: NACL 0.9% 100 ML IV PRN (12:40)
[2017-08-17] MEDS: HEPARIN SUB-Q SCH ×2 (14:20→22:00)
[2017-08-17] MEDS: LEVAQUIN 250MG/50ML 250 MG/50 ML BAG IV SCH (14:23)
[2017-08-17] MEDS: D5NS 1,000 ML IV SCH (14:29)
[2017-08-17 20:29] LABS: Hepatitis A Antibody IgM Non-Reactive (NonReactive); Hepatitis B Core IgM Non-Reactive (NonReactive); Hepatitis B Surface Antigen Non-Reactive (Negative); Hepatitis C Virus Antibody Non-Reactive (NonReactive)
[2017-08-18 04:34] LABS: Creatinine,Urine 120.7 mg/dL (0.1-20.0)
[2017-08-18 04:45] LABS: Creatinine 24 Hour,Urine 0.6 (0.8-2.8)
--- NOTE | 2017-08-18 07:19 | Fluoroscopy Report ---
AP CHEST: HISTORY: Permacath insertion This examination is just presented to me for interpretation. A single fluoroscopic image of the precordial region demonstrates a right IJ permacath which terminates within the right atrium. There is no gross pneumothorax. The lungs are grossly clear. Heart size is within normal limits. IMPRESSION: Right IJ permacath insertion as described. No pneumothorax is visualized.
[2017-08-18 07:59] LABS: Basophils # (Auto) 0.1 K/mm3 (0.0-0.1); Basophils % (Auto) 0.6 % (0.0-1.8); Eosinophils # (Auto) 0.2 K/mm3 (0.0-0.4); Eosinophils % (Auto) 2.2 % (0.0-4.3); Hematocrit 30.1 % (30.3-42.9); Hemoglobin 10.1 gm/dl (10.1-14.3); Lymphocytes # (Auto) 2.2 K/mm3 (1.2-5.4); Lymphocytes % (Auto) 24.8 % (13.4-35.0); Mean Corpuscular HGB Conc 34 % (30-34); Mean Corpuscular Volume 76 fl (79-97); Monocytes % (Auto) 11.2 % (0.0-7.3); Platelet Count 266 K/mm3 (140-440); Red Blood Count 3.96 M/mm3 (3.65-5.03)
[2017-08-18 08:02] LABS: Mean Corpuscular Hemoglobin 26 pg (28-32)
[2017-08-18 08:05] LABS: Calcium 8.9 mg/dL (8.4-10.2)
--- NOTE | 2017-08-18 09:58 | Progress Note ---
Assessment and Plan Impression: * FLORY--?VI * hyperkalemia * Azotemia--uremia * Cardiomyopathy * HTN * UTI Plan: * intiate hd for uremia and elec control, labs are better today * apparently baseline cr 1.7 to 1.9 * hold dialysis today * iv abx for UTI * recent heart cath in [place], may have VI * follow up daily lytes * follow up renal us, vasculitis work up * ua and urine lytes * hold bienvenido, aldactone for now * treat k medically * strict i/os * avoid nephrotoxins * dose meds to crcl 10 Subjective Date of service: 08/18/17 Principal diagnosis: flory Interval history: resting well in bed today Objective - Exam Narrative Exam: GENERAL: The patient is well-developed well-nourished female lying on stretcher not appearing to be in acute distress. [] HEENT: Normocephalic. Atraumatic. Extraocular motions are intact. Patient has moist mucous membranes. NECK: Supple. No meningitic signs are noted. Trachea midline CHEST/LUNGS: Clear to auscultation. There is no respiratory distress noted. HEART/CARDIOVASCULAR: Regular. There is no tachycardia. There is no gallop rub or murmur. ABDOMEN: Abdomen is soft, nontender. Patient has normal bowel sounds. There is no abdominal distention. SKIN: There is no rash. There is no edema. There is no diaphoresis. NEURO: The patient is awake, alert, and oriented. The patient is cooperative. The patient has no focal neurologic deficits. The patient has normal speech. Cranial nerves II through XII grossly intact, no drift MUSCULOSKELETAL: There is no evidence of acute injury. - Vital Signs Vital signs: Vital Signs - 12hr 08/17/17 08/18/17 08/18/17 23:53 03:30 03:31 Temperature 97.7 F Pulse Rate 70 89 Pulse Rate [ 89 Apical] Respiratory 18 Rate Blood Pressure 146/73 O2 Sat by Pulse 100 Oximetry 08/18/17 08/18/17 08/18/17 04:30 04:31 07:24 Temperature 98.8 F 97.4 F L Pulse Rate 78 74 Pulse Rate [ Apical] Respiratory 18 Rate Blood Pressure 125/66 121/70 O2 Sat by Pulse 99 96 Oximetry - Lab 08/18/17 06:54 08/18/17 06:54 Most recent lab results Calcium 8.9 mg/dL (8.4-10.2) 08/18/17 06:54 Urine Creatinine 120.7 mg/dL (0.1-20.0) H 08/17/17 09:14 Ur Total Protein 24 Hr 130.00 (2-200) 08/17/17 09:14 Urine Total Protein 26 mg/dL (5-11.8) H 08/17/17 09:14
[2017-08-18] MEDS: D5NS 1,000 ML IV SCH (10:16)
[2017-08-18] MEDS: HEPARIN SUB-Q SCH ×2 (10:53→22:10)
[2017-08-18] MEDS: SODIUM CHLORIDE FLUSH SYRINGE 10 ML IV SCH ×2 (10:56→22:11)
--- NOTE | 2017-08-18 11:17 | Progress Note ---
Assessment and Plan Assessment and plan: Acute on chronic renal failure. Patient previously had baseline creatinine 1.7- 1.9. Patient with significant azotemia/uremia. 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 Continue to follow-up BMP to monitor closely. Follow-up renal ultrasound and vasculitis workup. Continue to monitor urinalysis and urine electrolytes. Hold BIJU inhibitor and Aldactone per nephrology. Strict I and O's. Avoid nephrotoxins. I will discuss with nephrology plans for ? long-term hemodialysis. Hyperkalemia. Etiology secondary to #1. Resolved. UTI. Follow-up antibiotics and cultures. Hypertension. Continue antihypertensive medications. CHF/cardiomyopathy. Obtain old records from delineator in [place]. Syncope. Etiology likely secondary to orthostasis. Resolved. History Interval history: Patient underwent right IJ hemodialysis catheter placement. No other issues. Hospitalist Physical - Constitutional Vitals: Temp Pulse Resp BP Pulse Ox 97.4 F L 74 18 121/70 96 08/18/17 07:24 08/18/17 07:24 08/18/17 07:24 08/18/17 07:24 08/18/17 07:24 General appearance: Present: no acute distress - EENT Eyes: Present: PERRL, EOM intact ENT: hearing intact, clear oral mucosa, dentition normal - Neck Neck: Present: supple, normal ROM - Respiratory Respiratory effort: normal Respiratory: bilateral: CTA - Cardiovascular Rhythm: regular Heart Sounds: Present: S1 & S2. Absent: gallop, rub - Extremities Extremities: no ischemia, No edema, Full ROM - Abdominal General gastrointestinal: soft, non-tender, non-distended, normal bowel sounds - Integumentary Integumentary: Present: clear, warm, dry - Neurologic Neurologic: CNII-XII intact, moves all extremities Results - Labs CBC & Chem 7: 08/18/17 06:54 08/18/17 06:54 Labs: Laboratory Last Values WBC 8.8 K/mm3 (4.5-11.0) 08/18/17 06:54 RBC 3.96 M/mm3 (3.65-5.03) 08/18/17 06:54 Hgb 10.1 gm/dl (10.1-14.3) 08/18/17 06:54 Hct 30.1 % (30.3-42.9) L 08/18/17 06:54 MCV 76 fl (79-97) L 08/18/17 06:54 MCH 26 pg (28-32) L 08/18/17 06:54 MCHC 34 % (30-34) 08/18/17 06:54 RDW 14.0 % (13.2-15.2) 08/18/17 06:54 Plt Count 266 K/mm3 (140-440) 08/18/17 06:54 Lymph % (Auto) 24.8 % (13.4-35.0) 08/18/17 06:54 [place] % (Auto) 11.2 % (0.0-7.3) H 08/18/17 06:54 Eos % (Auto) 2.2 % (0.0-4.3) 08/18/17 06:54 Baso % (Auto) 0.6 % (0.0-1.8) 08/18/17 06:54 Lymph # 2.2 K/mm3 (1.2-5.4) 08/18/17 06:54 [place] # 1.0 K/mm3 (0.0-0.8) H 08/18/17 06:54 Eos # 0.2 K/mm3 (0.0-0.4) 08/18/17 06:54 Baso # 0.1 K/mm3 (0.0-0.1) 08/18/17 06:54 Seg Neutrophils % 61.2 % (40.0-70.0) 08/18/17 06:54 Seg Neutrophils # 5.4 K/mm3 (1.8-7.7) 08/18/17 06:54 PT 13.8 Sec. (12.2-14.9) 08/16/17 05:46 INR 1.01 (0.87-1.13) 08/16/17 05:46 Sodium 142 mmol/L (137-145) 08/18/17 06:54 Potassium 3.6 mmol/L (3.6-5.0) 08/18/17 06:54 Chloride 100.9 mmol/L (98-107) 08/18/17 06:54 Carbon Dioxide 27 mmol/L (22-30) 08/18/17 06:54 Anion Gap 18 mmol/L 08/18/17 06:54 BUN 41 mg/dL (7-17) H 08/18/17 06:54 Creatinine 2.6 mg/dL (0.7-1.2) H 08/18/17 06:54 Estimated GFR 23 ml/min 08/18/17 06:54 BUN/Creatinine Ratio 16 % 08/18/17 06:54 Glucose 97 mg/dL (65-100) 08/18/17 06:54 Calcium 8.9 mg/dL (8.4-10.2) 08/18/17 06:54 Total Creatine Kinase 100 units/L (30-135) 08/16/17 05:46 CK-MB (CK-2) 2.2 ng/mL (0.0-4.0) 08/16/17 05:46 CK-MB (CK-2) Rel Index 2.2 (0-4) 08/16/17 05:46 Troponin T < 0.010 ng/mL (0.00-0.029) 08/16/17 05:46 PTH Intact 232.6 pg/mL (15-65) H 08/16/17 10:01 Urine Color Yellow (Yellow) 08/16/17 Unknown Urine Turbidity Clear (Clear) 08/16/17 Unknown Urine pH 6.0 (5.0-7.0) 08/16/17 Unknown Ur Specific [place] 1.013 (1.003-1.030) 08/16/17 Unknown Urine Protein 30 mg/dl mg/dL (Negative) 08/16/17 Unknown Urine Glucose (UA) Neg mg/dL (Negative) 08/16/17 Unknown Urine Ketones Neg mg/dL (Negative) 08/16/17 Unknown Urine Blood Neg (Negative) 08/16/17 Unknown Urine Nitrite Neg (Negative) 08/16/17 Unknown Urine Bilirubin Neg (Negative) 08/16/17 Unknown Urine Urobilinogen < 2.0 mg/dL (<2.0) 08/16/17 Unknown Ur Leukocyte Esterase Lg (Negative) 08/16/17 Unknown Urine WBC (Auto) 23.0 /HPF (0.0-6.0) H 08/16/17 Unknown Urine RBC (Auto) 3.0 /HPF (0.0-6.0) 08/16/17 Unknown U Epithel Cells (Auto) 8.0 /HPF (0-13.0) 08/16/17 Unknown Urine Bacteria (Auto) 1+ /HPF (Negative) 08/16/17 Unknown Urine Mucus Few /HPF 08/16/17 Unknown Urine Eosinophils None seen (None Seen) 08/16/17 Unknown Urine Total Volume 500 08/17/17 09:14 Urine Creatinine 120.7 mg/dL (0.1-20.0) H 08/17/17 09:14 Ur Creatinine 24 Hour 0.6 (0.8-2.8) L 08/17/17 09:14 Ur Total Protein 24 Hr 130.00 (2-200) 08/17/17 09:14 Urine Total Protein 26 mg/dL (5-11.8) H 08/17/17 09:14 Hepatitis A IgM Ab Non-reactive (NonReactive) 08/17/17 12:40 Hep Bs Antigen Non-reactive (Negative) 08/17/17 12:40 Hep B Core IgM Ab Non-reactive (NonReactive) 08/17/17 12:40 Hepatitis C Antibody Non-reactive (NonReactive) 08/17/17 12:40
[2017-08-19 06:45] LABS: Basophils # (Auto) 0.1 K/mm3 (0.0-0.1); Basophils % (Auto) 0.7 % (0.0-1.8); Eosinophils # (Auto) 0.2 K/mm3 (0.0-0.4); Eosinophils % (Auto) 2.1 % (0.0-4.3); Hematocrit 28.2 % (30.3-42.9); Hemoglobin 9.5 gm/dl (10.1-14.3); Lymphocytes # (Auto) 2.4 K/mm3 (1.2-5.4); Lymphocytes % (Auto) 27.4 % (13.4-35.0); Mean Corpuscular HGB Conc 34 % (30-34); Mean Corpuscular Volume 76 fl (79-97); Monocytes # (Auto) 0.9 K/mm3 (0.0-0.8); Platelet Count 243 K/mm3 (140-440); Red Blood Count 3.72 M/mm3 (3.65-5.03); Red Cell Distribution Width 14.1 % (13.2-15.2)
[2017-08-19 06:47] LABS: Mean Corpuscular Hemoglobin 26 pg (28-32)
[2017-08-19 07:03] LABS: Calcium 8.4 mg/dL (8.4-10.2)
--- NOTE | 2017-08-19 09:50 | Progress Note ---
Assessment and Plan Assessment and plan: Acute on chronic renal failure. Patient previously had baseline creatinine 1.7- 1.9. Patient with significant azotemia/uremia. 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 Continue to follow-up BMP to monitor closely. Renal ultrasound reveals findings consistent with renal parenchymal disease and no evidence of obstruction. Follow-up vasculitis workup. Continue to monitor urinalysis and urine electrolytes. Hold BIJU inhibitor and Aldactone per nephrology. Strict I and O's. Avoid nephrotoxins. Hyperkalemia. Etiology secondary to #1. Resolved. UTI. Follow-up antibiotics and cultures. Hypertension. Continue antihypertensive medications. CHF/cardiomyopathy. 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 Syncope. Etiology likely secondary to orthostasis. Resolved. History Interval history: Patient underwent right IJ hemodialysis catheter placement. No other issues. Hospitalist Physical - Constitutional Vitals: Temp Pulse Resp BP Pulse Ox 98.1 F 63 18 136/64 99 08/19/17 04:19 08/19/17 04:19 08/19/17 04:19 08/19/17 04:19 08/19/17 04:19 General appearance: Present: no acute distress - EENT Eyes: Present: PERRL, EOM intact ENT: hearing intact, clear oral mucosa, dentition normal - Neck Neck: Present: supple, normal ROM - Respiratory Respiratory effort: normal Respiratory: bilateral: CTA - Cardiovascular Rhythm: regular Heart Sounds: Present: S1 & S2. Absent: gallop, rub - Extremities Extremities: no ischemia, No edema, Full ROM - Abdominal General gastrointestinal: soft, non-tender, non-distended, normal bowel sounds - Integumentary Integumentary: Present: clear, warm, dry - Neurologic Neurologic: CNII-XII intact, moves all extremities Results - Labs CBC & Chem 7: 08/19/17 06:10 08/19/17 06:10 Labs: Laboratory Last Values WBC 8.9 K/mm3 (4.5-11.0) 08/19/17 06:10 RBC 3.72 M/mm3 (3.65-5.03) 08/19/17 06:10 Hgb 9.5 gm/dl (10.1-14.3) L 08/19/17 06:10 Hct 28.2 % (30.3-42.9) L 08/19/17 06:10 MCV 76 fl (79-97) L 08/19/17 06:10 MCH 26 pg (28-32) L 08/19/17 06:10 MCHC 34 % (30-34) 08/19/17 06:10 RDW 14.1 % (13.2-15.2) 08/19/17 06:10 Plt Count 243 K/mm3 (140-440) 08/19/17 06:10 Lymph % (Auto) 27.4 % (13.4-35.0) 08/19/17 06:10 [place] % (Auto) 10.0 % (0.0-7.3) H 08/19/17 06:10 Eos % (Auto) 2.1 % (0.0-4.3) 08/19/17 06:10 Baso % (Auto) 0.7 % (0.0-1.8) 08/19/17 06:10 Lymph # 2.4 K/mm3 (1.2-5.4) 08/19/17 06:10 [place] # 0.9 K/mm3 (0.0-0.8) H 08/19/17 06:10 Eos # 0.2 K/mm3 (0.0-0.4) 08/19/17 06:10 Baso # 0.1 K/mm3 (0.0-0.1) 08/19/17 06:10 Seg Neutrophils % 59.8 % (40.0-70.0) 08/19/17 06:10 Seg Neutrophils # 5.4 K/mm3 (1.8-7.7) 08/19/17 06:10 PT 13.8 Sec. (12.2-14.9) 08/16/17 05:46 INR 1.01 (0.87-1.13) 08/16/17 05:46 Sodium 141 mmol/L (137-145) 08/19/17 06:10 Potassium 3.6 mmol/L (3.6-5.0) 08/19/17 06:10 Chloride 104.1 mmol/L (98-107) 08/19/17 06:10 Carbon Dioxide 25 mmol/L (22-30) 08/19/17 06:10 Anion Gap 16 mmol/L 08/19/17 06:10 BUN 28 mg/dL (7-17) H 08/19/17 06:10 Creatinine 2.1 mg/dL (0.7-1.2) H 08/19/17 06:10 Estimated GFR 30 ml/min 08/19/17 06:10 BUN/Creatinine Ratio 13 % 08/19/17 06:10 Glucose 93 mg/dL (65-100) 08/19/17 06:10 Calcium 8.4 mg/dL (8.4-10.2) 08/19/17 06:10 Total Creatine Kinase 100 units/L (30-135) 08/16/17 05:46 CK-MB (CK-2) 2.2 ng/mL (0.0-4.0) 08/16/17 05:46 CK-MB (CK-2) Rel Index 2.2 (0-4) 08/16/17 05:46 Troponin T < 0.010 ng/mL (0.00-0.029) 08/16/17 05:46 PTH Intact 232.6 pg/mL (15-65) H 08/16/17 10:01 Urine Color Yellow (Yellow) 08/16/17 Unknown Urine Turbidity Clear (Clear) 08/16/17 Unknown Urine pH 6.0 (5.0-7.0) 08/16/17 Unknown Ur Specific [place] 1.013 (1.003-1.030) 08/16/17 Unknown Urine Protein 30 mg/dl mg/dL (Negative) 08/16/17 Unknown Urine Glucose (UA) Neg mg/dL (Negative) 08/16/17 Unknown Urine Ketones Neg mg/dL (Negative) 08/16/17 Unknown Urine Blood Neg (Negative) 08/16/17 Unknown Urine Nitrite Neg (Negative) 08/16/17 Unknown Urine Bilirubin Neg (Negative) 08/16/17 Unknown Urine Urobilinogen < 2.0 mg/dL (<2.0) 08/16/17 Unknown Ur Leukocyte Esterase Lg (Negative) 08/16/17 Unknown Urine WBC (Auto) 23.0 /HPF (0.0-6.0) H 08/16/17 Unknown Urine RBC (Auto) 3.0 /HPF (0.0-6.0) 08/16/17 Unknown U Epithel Cells (Auto) 8.0 /HPF (0-13.0) 08/16/17 Unknown Urine Bacteria (Auto) 1+ /HPF (Negative) 08/16/17 Unknown Urine Mucus Few /HPF 08/16/17 Unknown Urine Eosinophils None seen (None Seen) 08/16/17 Unknown Urine Total Volume 500 08/17/17 09:14 Urine Creatinine 120.7 mg/dL (0.1-20.0) H 08/17/17 09:14 Ur Creatinine 24 Hour 0.6 (0.8-2.8) L 08/17/17 09:14 Ur Total Protein 24 Hr 130.00 (2-200) 08/17/17 09:14 Urine Total Protein 26 mg/dL (5-11.8) H 08/17/17 09:14 Hepatitis A IgM Ab Non-reactive (NonReactive) 08/17/17 12:40 Hep Bs Antigen Non-reactive (Negative) 08/17/17 12:40 Hep B Core IgM Ab Non-reactive (NonReactive) 08/17/17 12:40 Hepatitis C Antibody Non-reactive (NonReactive) 08/17/17 12:40
[2017-08-19] MEDS: SODIUM CHLORIDE FLUSH SYRINGE 10 ML IV SCH ×2 (10:00→21:51)
[2017-08-19] MEDS: HEPARIN SUB-Q SCH ×2 (10:58→21:48)
[2017-08-19] MEDS: LEVAQUIN 250MG/50ML 250 MG/50 ML BAG IV SCH (10:59)
--- NOTE | 2017-08-19 11:12 | Progress Note ---
Assessment and Plan Impression: * Acute kidney injury secondary to VI on chronic kidney disease --Baseline SCr 1.7-1.9mg/dL --Recent [facility] in [place] * Hyperkalemia - resolved * Uremia - resolved * Cardiomyopathy * HTN * UTI Plan: * Hold HD today - renal function appears to have recovered * Check AM labs * Medical management of electrolytes * Abx per primary team * Follow up on pending work up * Strict i/os * Avoid nephrotoxins * Dose medications for renal function * Patient should be stable for d/c tomorrow * Hold ACEi and Aldactone at discharge * Will need permcath removed prior to d/c - discussed with Dr. Mullins (Dr. Fleming is high tension tester for the weekend) Subjective Date of service: 08/19/17 Principal diagnosis: alexys Interval history: Patient has no complaints today. She denies N/V/SOB Objective - Vital Signs Vital signs: Vital Signs - 12hr 08/19/17 08/19/17 03:30 04:19 Temperature 98.1 F Pulse Rate 83 63 Respiratory 18 Rate Blood Pressure 136/64 O2 Sat by Pulse 99 Oximetry - General Appearance General appearance: well-developed, well-nourished EENT: ATNC Neck: no JVD Respiratory: Present: Clear to Ascultation Cardiology: regular, S1S2 Gastrointestinal: normal Integumentary: no rash, warm and dry Neurologic: no focal deficit, alert and oriented x3 Musculoskeletal: other (no edema) Psychiatric: cooperative - Lab 08/19/17 06:10 08/19/17 06:10 Most recent lab results Calcium 8.4 mg/dL (8.4-10.2) 08/19/17 06:10 Urine Creatinine 120.7 mg/dL (0.1-20.0) H 08/17/17 09:14 Ur Total Protein 24 Hr 130.00 (2-200) 08/17/17 09:14 Urine Total Protein 26 mg/dL (5-11.8) H 08/17/17 09:14
[2017-08-19] MEDS: D5NS 1,000 ML IV SCH (21:11)
[2017-08-20 05:49] LABS: Basophils # (Auto) 0.1 K/mm3 (0.0-0.1); Basophils % (Auto) 0.8 % (0.0-1.8); Eosinophils # (Auto) 0.2 K/mm3 (0.0-0.4); Eosinophils % (Auto) 2.2 % (0.0-4.3); Hematocrit 28.1 % (30.3-42.9); Hemoglobin 9.4 gm/dl (10.1-14.3); Lymphocytes # (Auto) 2.8 K/mm3 (1.2-5.4); Lymphocytes % (Auto) 26.2 % (13.4-35.0); Mean Corpuscular HGB Conc 34 % (30-34); Mean Corpuscular Volume 76 fl (79-97); Monocytes # (Auto) 0.9 K/mm3 (0.0-0.8); Monocytes % (Auto) 8.5 % (0.0-7.3); Platelet Count 230 K/mm3 (140-440); Red Blood Count 3.72 M/mm3 (3.65-5.03)
[2017-08-20 06:15] LABS: Mean Corpuscular Hemoglobin 25 pg (28-32)
[2017-08-20 06:56] LABS: Calcium 8.5 mg/dL (8.4-10.2)
--- NOTE | 2017-08-20 08:51 | Discharge Summary ---
Providers - Providers Date of Admission: 08/16/17 08:32 Date of discharge: 08/20/17 Attending physician: ARNULFO PAEZ 08/16/17 08:25 Consult to Physician [CONS] Routine Comment: A/S NOTIFIED [id number] Consulting Provider: FAZAL PETTIT Physician Instructions: Reason For Exam: Acute kidney injury 08/16/17 10:03 Consult to Physician [CONS] Routine Comment: Consulting Provider: DAGMAR LEOS Physician Instructions: Reason For Exam: perm cath placement Primary care physician: DYE CAN OPERATOR Hospitalization Reason for admission: renal failure Condition: Fair Hospital course: This pt is a 51 yo AAF with past medical history of hypertension, CKD and congestive heart failure that was admitted via the ER 08/16/17 after a syncopal episode. She was noted to be in acute on CKD. Patient was evaluated in emergency department, CT head was unremarkable. Labs showed acute kidney injury with creatinine of 6.9, Hyperkalemia with potassium of 5.7. Patient was seen by nephrology in consultation. Also, A vascular surgery consult was requested to evaluate for Perma-cath placement. Nephrology felt that the patient was uremic by exam and lab data requiring ELECTRONIC FUNDS TRANSFER COORDINATOR. Nephrology felt etiology was acute kidney injury secondary to contrast-induced nephropathy on chronic kidney disease. Patient reportedly had a recent C in [place]. After her hemodialysis patient recovered back to her baseline of SCr 1.7-1.9mg/ dL. patient will be discharged today after removal of PermCath by vascular surgery. Dedicated discharge time 35 minutes. Disposition: - TO HOME OR SELFCARE Time spent for discharge: 35 - Discharge Diagnoses (1) Acute kidney injury superimposed on CKD Status: Acute (2) Acute renal failure Status: Acute (3) Hyperkalemia Status: Acute (4) Syncope Status: Acute Core Measure Documentation - Palliative Care Palliative Care/ Comfort Measures: Not Applicable - Core Measures Any of the following diagnoses?: none Exam - Constitutional Vitals: Temp Pulse Resp BP Pulse Ox 97.8 F 100 H 20 134/74 100 08/20/17 05:58 08/20/17 05:58 08/20/17 05:58 08/20/17 05:58 08/20/17 05:58 General appearance: Present: no acute distress, well-nourished - EENT Eyes: Present: PERRL ENT: hearing intact, clear oral mucosa - Neck Neck: Present: supple, normal ROM - Respiratory Respiratory effort: normal Respiratory: bilateral: CTA - Cardiovascular Heart Sounds: Present: S1 & S2. Absent: rub, click - Extremities Extremities: pulses symmetrical, No edema Peripheral Pulses: within normal limits - Abdominal General gastrointestinal: Present: soft, non-tender, non-distended, normal bowel sounds Female genitourinary: Present: normal - Integumentary Integumentary: Present: clear, warm, dry - Musculoskeletal Musculoskeletal: gait normal, strength equal bilaterally - Psychiatric Psychiatric: appropriate mood/affect, intact judgment & insight - Neurologic Neurologic: CNII-XII intact, moves all extremities Plan Activity: no restrictions Weight Bearing Status: Full Weight Bearing Diet: renal Follow up with: PRIMARY CAREMD [Primary Care Provider] - 3-5 Days
[2017-08-20 10:26] VITALS: BP 141/82
--- NOTE | 2017-08-20 11:11 | Progress Note ---
Subjective Principal diagnosis: alexys Interval history: Patient was seen today for follow-up on multiple renal related issues Events of this hospitalization noted Patient denies having any chest pain pressure or shortness of breath Vitals labs intake output medications were reviewed Social history: Reviewed Allergies: Reviewed Family history: Reviewed Physical examination HEENT: Oral mucosa moist no pallor or icterus Neck: Supple no JVD Chest: Clear to auscultation anteriorly CVS: Regular rate and rhythm S1 and S2 heard Abdomen: Soft nontender no suprapubic masses no organomegaly appreciable Extremity: Dry skin less than 1+ peripheral edema Musculoskeletal: No joint effusion noted in knees and ankle Neurological: Alert awake Dermatology: No petechial rashes Psychiatry: No evidence of any agitation and aggression noted Assessment and plan Acute kidney injury: Resulting from contrast-induced renal failure, dialysis has been withheld, creatinine is currently 1.9 patient is nonoliguric potassium is normal, she has been urinating between 5-6 times a day Advised the patient take baking soda quarter teaspoon in water every day Kidney ultrasonogram obtained August 16 shows that patient has echogenic kidneys suggestive of chronic kidney disease He does not need anymore dialysis, Hyperkalemia has been resolved Uremia completely resolved at this time History of underlying cardiomyopathy: Make patient prone to cardiorenal syndrome Hypertension and urinary tract infection Patient needs to make a follow-up appointment in the office next week Adequately counseled and educated regarding all the renal related issues need to monitor urine output avoid any follow-up on a startle drug no angiotensin receptor alverto or BIJU inhibitor should be given to the patient Mild anemia hemoglobin 9.4 stable He will need to call our office on Tuesday to make an appointment for follow-up Patient was adequately counseled and educated regarding multiple renal related issues, she was told to follow up with her primary care pian and 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 a veneer stock grader in [place] Pertinent lab findings were discussed with patient, patient does exhibit good understanding of renal issues We'll continue to follow and make recommendation from renal standpoint Objective - Vital Signs Vital signs: Vital Signs - 12hr 08/19/17 08/20/17 08/20/17 23:13 00:13 05:00 Temperature 98.6 F Pulse Rate 68 67 60 Respiratory 18 Rate Blood Pressure 152/77 Blood Pressure 152/77 [Right] O2 Sat by Pulse 100 100 Oximetry 08/20/17 08/20/17 08/20/17 05:11 05:58 08:35 Temperature 97.8 F 98.5 F Pulse Rate 68 100 H 67 Respiratory 20 18 Rate Blood Pressure 134/74 141/82 Blood Pressure 134/74 [Right] O2 Sat by Pulse 100 100 100 Oximetry - Lab 08/20/17 05:17 08/20/17 05:17 Most recent lab results Calcium 8.5 mg/dL (8.4-10.2) 08/20/17 05:17 Urine Creatinine 120.7 mg/dL (0.1-20.0) H 08/17/17 09:14 Ur Total Protein 24 Hr 130.00 (2-200) 08/17/17 09:14 Urine Total Protein 26 mg/dL (5-11.8) H 08/17/17 09:14
[2017-08-20] MEDS ORDERED: LEVAQUIN PO SCH (14:00)
--- NOTE | 2017-08-20 14:07 | Event Note ---
Date: 08/20/17 right IJ permcath removed. Patient tolerted procedure well.
[2017-08-20] MEDS: SODIUM CHLORIDE FLUSH SYRINGE 10 ML IV SCH (17:53)
== END 2017-08-20 19:22 | disposition home or self-care (01) | DRG 674 ==
LOC: EDBD → ED 19:13 → 4A 08-16 08:32
PROVIDERS: ADMIT Internal Medicine; ATTEND Hospitalist
PROC: 0JH63XZ Insertion of Tunneled Vascular Access Device into Chest Subcutaneous Tissue and Fascia, Percutaneous Approach (ICD-10-PCS; principal; 2017-08-17)
PROC: 02H633Z Insertion of Infusion Device into Right Atrium, Percutaneous Approach (ICD-10-PCS; 2017-08-17)
PROC: B244ZZZ Ultrasonography of Right Heart (ICD-10-PCS; 2017-08-17)
PROC: B2141ZZ Fluoroscopy of Right Heart using Low Osmolar Contrast (ICD-10-PCS; 2017-08-17)
PROC: 5A1D70Z Performance of Urinary Filtration, Intermittent, Less than 6 Hours Per Day (ICD-10-PCS; 2017-08-17)
DX: N17.9 Acute kidney failure, unspecified (principal); N39.0 Urinary tract infection, site not specified; I13.0 Hypertensive heart and chronic kidney disease with heart failure and stage 1 through stage 4 chronic kidney disease, or unspecified chronic kidney disease; I42.9 Cardiomyopathy, unspecified; E87.5 Hyperkalemia; D64.9 Anemia, unspecified; N18.9 Chronic kidney disease, unspecified; I50.9 Heart failure, unspecified; Z82.49 Family history of ischemic heart disease and other diseases of the circulatory system; Z79.82 Long term (current) use of aspirin; Z79.899 Other long term (current) drug therapy; I95.1 Orthostatic hypotension
CPT/HCPCS: 36415; 36558; 70450; 71046; 76770; 76937; 77001; 80048; 80074; 81001; 82550; 82553; 82570; 83970; 84156; 84165; 84484; 85025; 85027; 85610; 86021; 86038; 86160; 86706; 86803; 87086; 89050; 93005; 93010; 99406; C1750; C1751; J0610; J0690; J1644; J1815; J1956; J2250; J3010; J7030; J7042